=== PATIENT | male | born 1985 | race Caucasian/White ===

== ENCOUNTER 2020-07-01 09:00 | Outpatient (RCR) | payer OTHER, SELFPAY | END 2021-03-09 10:00 | disposition home or self-care (01) | LOC: HO.WCC 09:00 | PROVIDERS: PCP Internal Medicine; Visit Provider Physician Assistant Surgical | DX: I87.012 Postthrombotic syndrome with ulcer of left lower extremity (principal); L97.222 Non-pressure chronic ulcer of left calf with fat layer exposed; D68.2 Hereditary deficiency of other clotting factors; E66.01 Morbid (severe) obesity due to excess calories | CPT/HCPCS: 11042; 97597; 97598; 99212; 99213; 99214 ==

== ENCOUNTER 2020-07-23 12:48 | Outpatient (REF) | payer OTHER, SELFPAY ==
[2020-07-23 13:22] LABS: INTERNATIONAL NORM RATIO 1.5 (0.9-1.1); Prothrombin Time 17.7 SEC (10.8-13.0)
== END 2020-07-23 12:49 | disposition home or self-care (01) ==
LOC: HO.LAB 12:48
PROVIDERS: PCP Internal Medicine; Visit Provider Internal Medicine
DX: Z79.01 Long term (current) use of anticoagulants (principal)
CPT/HCPCS: 36415; 85610

== ENCOUNTER → 2021-07-19 11:05 | Outpatient (BNVA) | payer OTHER, SELFPAY | PROVIDERS: PCP Internal Medicine; Referring Provider Internal Medicine; Visit Provider Psychiatry & Neurology Neurology | DX: G47.19 Other hypersomnia (principal); R06.83 Snoring; E66.01 Morbid (severe) obesity due to excess calories; F19.11 Other psychoactive substance abuse, in remission; Z68.44 Body mass index [BMI] 60.0-69.9, adult | CPT/HCPCS: 99202 ==

== ENCOUNTER → 2021-11-03 14:16 | Outpatient (REF) | payer OTHER, SELFPAY | LOC: HO.SL 14:16 | PROVIDERS: Visit Provider Psychiatry & Neurology Neurology | DX: R06.83 Snoring (principal); G47.19 Other hypersomnia | CPT/HCPCS: 95806 ==

== ENCOUNTER 2024-03-27 10:04 | Outpatient (AMB) | payer OTHER, SELFPAY ==
--- NOTE | 2024-03-27 10:05 | MHC.PC.OV ---
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 Poker: Not Required per policy Accompanied by: Self / Same As Patient Allergies shellfish Allergy (Unknown, Uncoded 03/27/24 10:57) Unknown Medication List - Last Reconciled 03/27/24 by Chay Fermin MD methadone 50 mg PO DAILY warfarin 10 mg (2 x 5 mg) PO DAILY 30 days Tobacco use date assessed: 03/27/24 Dental Screening Dental Screen Date: 03/27/24 Did you have a dental visit in the last 12 months?: Yes Did you have a dental problem in the last 6 months where you did not have access to dental care?: No Was dental information given to patient?: Patient has dentist HPI pe HPI Details Patient comes in today for his annual physical examination - was last seen here in April 2022 Patient states that he currently has several issues that he would like to get checked out He would like to get checked for diabetes and possible thyroid problems as he feels that he has changed his diet around a lot lately and he is still not able to lose any significant amount of weight He would like to know if he can try some of the new GLP-1s out in the market today to help him lose weight States that he currently has an ulcer on the tip of his penis that has been present for over 2 months now and this is making him concerned that he may have diabetes States that he is no longer taking Topamax and that his headaches have not gotten any worse since he stopped taking it a few weeks ago States that his skin also appears to be breaking down in general lately, as he has had a significant increase in dandruff again from his scalp Notes that he is also developing several skin lesions/dry skin again over his legs He has also been experiencing increasing pain over his right knee lately and thinks that he may have arthritis in the knee He denies any headaches or dizziness lately Denies any chest pains, no increased shortness of breath No nausea/ vomiting, no abdominal pain No change in bowel habits noted He denies any acute urinary symptoms PFSH Medical History (Updated 03/28/24 @ 06:10 by Chay Fermin MD) Major depression, recurrent, chronic Essential hypertension Varicose veins of both legs with edema Lymphedema of both lower extremities Rib pain Impaired fasting glucose Bilateral lower extremity edema History of substance abuse Migraine Asthma Morbid obesity with BMI of 60.0-69.9, adult Witnessed apneic spells Monitoring for long-term anticoagulant use Factor V deficiency Anticoagulated by anticoagulation treatment Surgical History No significant past surgical history Family History Maternal Grandmother Breast cancer, Onset Age: 25 Colon cancer Paternal Grandmother Lung cancer Mother Fibromyalgia Other Mental health problem Substance abuse Social History Housing: Apartment Alcohol intake: never Patient Tobacco Use Status: Former Tobacco user Years Smoked: 20 +/- e-Cigarette/Vaping Use: Currently Using Substance Use Type: Crack/Cocaine and Heroin service: No Current occupational status: disabled Cognitive needs: Yes (requesting a cane. ) Hearing needs: No Vision needs: No Questionnaire PHQ-9 Over the last 2 weeks, how often have you been bothered by any of the following problems? 1. Little interest or pleasure in doing things: several days 2. Feeling down, depressed, or hopeless: several days 3. Trouble falling or staying asleep, or sleeping too much: nearly every day 4. Feeling tired or having little energy: nearly every day 5. Poor appetite or overeating: nearly every day 6. Feeling bad about yourself - or that you are a failure or have let yourself or your family down: more than half the days 7. Trouble concentrating on things, such as reading the newspaper or watching television: not at all 8. Moving or speaking so slowly that other people could have noticed. Or the opposite - being so fidgety or restless that you have been moving around a lot more than usual: nearly every day 9. Thoughts that you would be better off or of hurting yourself in some way: not at all Total score: 16 Depression Screening Interpretation: Positive Depression Screening Follow-up: Community Mental Health Worker F/U and Declines treatment Depression Screening Done: Yes [id number] - PHQ-9 Billing: Yes Source: Developed by Drs. Darwin Jones, Parminder Cruz and colleagues, with an educational harvey from [employer]. Thrive Questionnaire Date Thrive assessed: 03/27/24 I am a: Patient What is your living situation today?: I have a steady place to live Within the past 12 months, did the food you bought not last and you didn't have the money to get more?: Never true Within the past 12 months, did you worry whether your food would run out before you got money to buy more?: Never true Do you have trouble paying for medicines?: No Do you have trouble getting transportation to medical appointments?: No Do you have trouble paying your heating and electricity bill?: No Do you have trouble taking care of your child, family member or friend?: No Do you have trouble with day-to-day activities such as bathing, preparing meals, shopping, managing finances, etc.?: No Are you currently unemployed and looking for a job?: No Are you interested in more education?: No Please select the resources that you would like help with: None Currently or been in a relationship where the following occur: No concerns reported THRIVE Score: 0 AUDIT C Alcohol Use Questionnaire (AUDIT-C) 1. How often do you have a drink containing alcohol?: Never 3. How often do you have six or more drinks on one occasion?: Never Total Score: 0 Score Reviewed/Action Taken: Yes SAVANNA-7 AMB Questionnaire SAVANNA-7 Date SAVANNA - 7 assessed: 03/27/24 Feeling nervous, anxious, or on edge: 0 = Not at all Not being able to stop or control worryin = Not at all Worrying too much about different things: 0 = Not at all Trouble relaxin = Not at all Being so restless that it is hard to sit still: 0 = Not at all Becoming easily annoyed or irritable: 0 = Not at all Feeling afraid as if something awful might happen: 0 = Not at all Total SAVANNA-7 score (0-4 normal; 5-9 mild; 10-14 moderate; 15-21 severe): 0 Source: Developed by Drs. Darwin Jones, Parminder Cruz and colleagues, with an educational harvey from [employer]. Review of Systems Const Denies chills, Reports fatigue, Denies fever(s), Denies headache(s), Denies malaise and Denies weakness Eyes Denies blurry vision, Denies change in vision, Denies irritation and Denies itchy eyes ENT Denies dysphagia, Denies dizziness, Denies otalgia, Denies headache(s), Denies nasal congestion, Denies neck pain, Denies odynophagia and Denies sore throat Card Denies chest pain, Denies rapid heart rate, Denies irregular heart rhythm, Denies palpitations and Denies dyspnea Resp Denies chest congestion, Denies cough, Denies dyspnea and Denies wheezing GI Denies abdominal pain, Denies bloating, Denies constipation, Denies dysphagia, Denies heartburn, Denies diarrhea, Denies nausea, Denies odynophagia and Denies vomiting Details: (+) persistent sore on the tip of his penis Denies hematuria, Denies difficulty urinating, Denies dysuria, Denies urinary frequency and Denies urinary urgency Musc Denies back pain, Reports arthralgias (in the right knee - increasing lately), Reports joint swelling (on and off in the right knee), Denies muscle weakness and Denies neck pain Skin/Breast Details: increase in dandruff on his scalp Denies breast pain, Denies breast mass, Reports dry skin, Reports rash (increasing, over both lower legs) and Denies unusual bruising Neuro Denies dizziness, Denies headache(s), Denies paresthesias and Denies weakness Psych Denies anxiety and Reports depression Endo Reports fatigue and Denies palpitations Aller/Immun Denies itchy eyes and Denies wheezing Physical exam (Primary Care) Vital Signs: Last Vital Signs Pulse 86 03/27/24 10:06 BP 170/89 H 03/27/24 10:06 Pulse Ox 93 03/27/24 10:06 Oxygen Delivery Method Room Air 03/27/24 10:06 BMI result Body Mass Index 68.3 Tobacco/Smoking Status: Tobacco use Status Tobacco use date assessed 03/27/24 03/27/24 10:13 Patient Tobacco Use Status Former Tobacco user 03/27/24 10:13 e-Cigarette/Vaping Use Currently Using 03/27/24 10:13 PHQ-9: PHQ-9 Score PHQ-9: Total score 16 03/27/24 11:01 Depression Screening Interpretation: Positive Depression Screening Follow-up: Community Mental Health Worker F/U and Declines treatment Thrive Assessment: Date of Thrive Assessment Date Thrive assessed 03/27/24 03/27/24 10:13 Currently or been in a relationship where the following occur: No concerns reported Const General: no acute distress, alert and awake Orientation/consciousness: patient oriented x3 HENMT Other: (+) scattered seborrhea (dandruff) over the entire scalp Head: Yes normocephalic and Yes atraumatic Ears: external ears normal, TM's normal bilaterally and EAC's normal General nose exam: No nasal discharge present Face and sinus: Yes normal facial exam and Yes sinuses nontender Teeth and gingiva: dentition normal Throat: Yes posterior oropharynx normal and Yes tonsils normal (no TP congestion) Eyes Eyelids: Yes eyelids normal Conjunctivae: conjunctivae normal Pupils: Equal, round and reactive pupils present EOM: EOMs intact bilaterally Neck Neck: Yes no lymphadenopathy and Yes supple Thyroid: Thyroid normal Resp Auscultation: clear to auscultation bilaterally, no rales and no wheezes Cardio Rate: regular rate Rhythm: regular rhythm Heart sounds: no murmurs GI Other: unable to properly examine abdomen due to his globularly enlarged abdomen - he is morbidly obese Palpation (GI): Soft to palpation and nontender Auscultation: normal bowel sounds General: Yes no CVA tenderness Back/Spine/Pelvis Back: no CVA tenderness Thoracic/Lumbar Spine: No lumbar spinal tenderness Skin Other: (+) several large patchy areas of scaling rash on both lower extremities Neuro General: patient oriented x3, moves all extremities, no focal motor deficits and CN's II-XI intact bilaterally Cranial nerves: Yes Equal, round and reactive pupils present Cognition (Neuro): normal cognition Gait exam (Neuro): Normal gait present Extrem Other: (+) severe edema (3+) over both lower extremities - has chronic lymphedema, stasis dermatitis and significant varicosities noted over both lower legs Right lower extremity: knee Details: tenderness Location: of the pre-patellar area and of the infrapatellar area Assessment and Plan Assessment & Plan (1) Annual physical exam: Code(s): Z00.00 - Encounter for general adult medical examination without abnormal findings Plan: Check labs Have explained to patient that in the future, an annual physical should be done mostly for preventive management and not for addressing multiple active issues but as he has not been back in a couple of years, will go ahead and address all of his current issues as well today (2) Obstructive sleep apnea: Code(s): G47.33 - Obstructive sleep apnea (adult) (pediatric) Plan: Continue using his CPAP device regularly when sleeping at night He reports significant improvement of his symptoms - states that he has been more alert, with no daytime somnolence/drowsiness, feels less fatigued and has experienced a significant improvement of his headaches ever since he started CPAP therapy at night Follow up with Sleep Medicine as scheduled (3) Essential hypertension: Code(s): I10 - Essential (primary) hypertension Plan: Reinforced low sodium diet - goal is systolic BP of 120 mm or less He used to take Furosemide 20 mg Q AM and this was helping with his blood pressure but he stopped taking this a few weeks ago so he currently no longer has any Rx to help with his blood pressure Advised that if his blood pressure continues to stay high consistently, we will then need to start him on some other antihypertensives to help control his blood pressure Patient is reminded to continue monitoring his blood pressure regularly (4) Factor V deficiency: Comment: (+) Hx of DVT of the lower extremity; 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 Code(s): D68.2 - Hereditary deficiency of other clotting factors Plan: Continue lifelong anticoagulation with Coumadin He goes to the [facility] for PT/INR monitoring (5) Lymphedema of both lower extremities: Code(s): I89.0 - Lymphedema, not elsewhere classified Plan: He has chronic lymphedema, most likely due to his morbid obesity Continue Furosemide 20 mg Q AM PRN Patient reminded also to elevate his legs as often as he can throughout the day to help minimize his symptoms (6) Varicose veins of both legs with edema: Code(s): I83.893 - Varicose veins of bilateral lower extremities with other complications Plan: He has been seen by vascular surgery in the past and was reportedly advised that with his factor V deficiency, he would not be a good candidate for any ablative procedures for his varicose veins as he would be at risk for increased bleeding (7) Migraine: Code(s): G43.909 - Migraine, unspecified, not intractable, without status migrainosus Qualifiers: Intractability: not intractable Migraine type: with aura Status migrainosus presence: without status migrainosus Qualified Code(s): G43.109 - Migraine with aura, not intractable, without status migrainosus Plan: Stable/controlled Patient used to take Topiramate 50 mg 1.5 tablets (75 mg)?Q HS for headache prophylaxis but he stopped taking this a few months ago with no apparent increase in his headaches It is possible that his headaches have improved with his CPAP therapy and he does not appear to require any prophylactic treatment at this time Reinforced avoidance of migraine triggers Follow-up with neurology as scheduled or as needed (8) Asthma: Code(s): J45.909 - Unspecified asthma, uncomplicated Qualifiers: Asthma complication type: uncomplicated Asthma persistence: intermittent Asthma severity: mild Qualified Code(s): J45.20 - Mild intermittent asthma, uncomplicated Plan: Stable Continue Albuterol HFA 2 puffs 4 times a day as needed (9) Seborrheic dermatitis of scalp: Code(s): L21.9 - Seborrheic dermatitis, unspecified Plan: Per request, will refer to dermatology for further evaluation and management (10) Stasis dermatitis of both legs: Code(s): I87.2 - Venous insufficiency (chronic) (peripheral) Plan: Will refer him to dermatology for further evaluation and management of this issue as well (11) Penile ulcer: Code(s): N48.5 - Ulcer of penis Plan: Patient instructed to continue with daily wound care for now As requested, will send him for some labs and will include tests for his blood sugar and HgbA1c as well to assess him for diabetes (12) Knee pain, bilateral: Code(s): M25.561 - Pain in right knee; M25.562 - Pain in left knee Qualifiers: Chronicity: unspecified Qualified Code(s): M25.561 - Pain in right knee; M25.562 - Pain in left knee Plan: Will sent him for x-rays of both knees for further evaluation (13) History of substance abuse: Code(s): F19.11 - Other psychoactive substance abuse, in remission Plan: Continue Methadone 10 mg/5 ml 25 ml (50 mg) QD Follow up with the Methadone clinic as scheduled (14) Major depression, recurrent, chronic: Code(s): F33.9 - Major depressive disorder, recurrent, unspecified Plan: States that he is presently still following up with psychiatry regularly (15) Morbid obesity with BMI of 60.0-69.9, adult: Code(s): E66.01 - Morbid (severe) obesity due to excess calories; Z68.44 - Body mass index [BMI] 60.0-69.9, adult Plan: Reinforced diet; exercise and weight weight loss would be difficult at this time given the severity of his obesity Will refer him [place] [facility] [place] evaluation (16) Colon cancer screening: Code(s): Z12.11 - Encounter for screening for malignant neoplasm of colon Plan: Per request, will also refer him to GI for consideration for screening colonoscopy States that he has a maternal grandmother who was reportedly diagnosed with colon cancer in her early 40s and he would like to know that based on this information, if he should be checked for colon cancer much earlier than recommended Have advised that he does not have any first-degree relative diagnosed with early colon cancer ( his maternal grandmother does not count) but I will leave it up to Gastroenterology to determine his eligibility Plan Follow up in 3 months Orders: Orders Complete Blood Count Auto Diff 03/27/24 D64.9 - Anemia, unspecified, Z00.00 - Encounter for general adult medical examination without abnormal findings TSH reflex Free T4 03/27/24 E78.00 - Pure hypercholesterolemia, unspecified, Z00.00 - Encounter for general adult medical examination without abnormal findings Hemoglobin A1c 03/27/24 E11.9 - Type 2 diabetes mellitus without complications, Z00.00 - Encounter for general adult medical examination without abnormal findings Vitamin D 25-OH Total 03/27/24 E55.9 - Vitamin D deficiency, unspecified, Z00.00 - Encounter for general adult medical examination without abnormal findings XR knee RT 4V 03/27/24 M25.561 - Pain in right knee XR knee LT 4V 03/27/24 M25.562 - Pain in left knee MELIA Reflex Titer and Pattern 03/27/24 M25.50 - Pain in unspecified joint, R60.0 - Localized edema Rheumatoid Factor 03/27/24 M25.50 - Pain in unspecified joint, R60.0 - Localized edema Erythrocyte Sedimentation Rate 03/27/24 M25.50 - Pain in unspecified joint, M79.7 - Fibromyalgia, R60.0 - Localized edema Comprehensive [place]. Panel Fast 03/27/24 E78.00 - Pure hypercholesterolemia, unspecified, Z00.00 - Encounter for general adult medical examination without abnormal findings Lipid Panel 03/27/24 E78.00 - Pure hypercholesterolemia, unspecified, Z00.00 - Encounter for general adult medical examination without abnormal findings UA CC w/rflx Micro + Cult 03/27/24 R30.0 - Dysuria, Z00.00 - Encounter for general adult medical examination without abnormal findings C Reactive Protein 03/27/24 M25.50 - Pain in unspecified joint, R60.0 - Localized edema Referrals Medical Weight Management Referral E66.01 - Morbid (severe) obesity due to excess calories, Z68.44 - Body mass index [BMI] 60.0-69.9, adult Gastroenterology Referral Z12.11 - Encounter for screening for malignant neoplasm of colon Dermatology Referral L21.9 - Seborrheic dermatitis, unspecified, L30.9 - Dermatitis, unspecified, L40.9 - Psoriasis, unspecified Coding Level of Care Code Est Pt Prev Care [id number]([id number]) Diagnoses Annual physical exam Z00.00 Obstructive sleep apnea G47.33 Essential hypertension I10 Factor V deficiency D68.2 Lymphedema of both lower extremities I89.0 Varicose veins of both legs with edema I83.893 Migraine with aura and without status migrainosus, not intractable G43.109 Intractability: not intractable Migraine type: with aura Status migrainosus presence: without status migrainosus Mild intermittent asthma without complication J45.20 Asthma complication type: uncomplicated Asthma persistence: intermittent Asthma severity: mild Seborrheic dermatitis of scalp L21.9 Stasis dermatitis of both legs I87.2 Penile ulcer N48.5 Pain in both knees, unspecified chronicity M25.561; M25.562 Chronicity: unspecified History of substance abuse F19.11 Major depression, recurrent, chronic F33.9 Morbid obesity with BMI of 60.0-69.9, adult E66.01; Z68.44 Colon cancer screening Z12.11
[2024-03-27 10:06] VITALS: BP 170/89; PULSE 86; O2SAT 93; BMI 68.3
== END 2024-03-27 11:19 | disposition home or self-care (01) ==
PROVIDERS: PCP Internal Medicine; Visit Provider Internal Medicine
DX: Z00.00 Encounter for general adult medical examination without abnormal findings (principal); G47.33 Obstructive sleep apnea (adult) (pediatric); I10 Essential (primary) hypertension; I83.893 Varicose veins of bilateral lower extremities with other complications; I89.0 Lymphedema, not elsewhere classified; G43.109 Migraine with aura, not intractable, without status migrainosus; J45.20 Mild intermittent asthma, uncomplicated; L21.9 Seborrheic dermatitis, unspecified; I87.2 Venous insufficiency (chronic) (peripheral); N48.5 Ulcer of penis; M25.561 Pain in right knee; M25.562 Pain in left knee
CPT/HCPCS: 99395

== ENCOUNTER 2024-07-09 14:27 | Outpatient (AMB) | payer OTHER, SELFPAY ==
--- NOTE | 2024-07-09 14:25 | A.OFFPC_ITS ---
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 Required: No Accompanied by: Self / Same As Patient Allergies shellfish Allergy (Unknown, Uncoded 07/13/24 07:16) Unknown Medication List - Last Reconciled 07/13/24 by Chay Fermin MD cholecalciferol (vitamin D3) 50 mcg PO DAILY 90 days escitalopram oxalate 20 mg PO DAILY methadone 50 mg PO DAILY warfarin 10 mg (2 x 5 mg) PO DAILY 30 days Tobacco use date assessed: 07/09/24 Dental Screening Dental Screen Date: 03/27/24 Did you have a dental visit in the last 12 months?: No Did you have a dental problem in the last 6 months where you did not have access to dental care?: No Was dental information given to patient?: Patient has dentist HPI 3m f/u [phone] HPI Details Patient's follow up visit / consultation today is done over video conference (iPhone/iPad/[employer]) - this is a TELEHEALTH visit Patient's current medications have been reviewed and verified with patient and/or caregiver/proxy and have been updated accordingly in the medication list Patient states that he feels okay He denies any headaches or dizziness Denies any chest pains, no shortness of breath No nausea/vomiting, no abdominal pain No change in bowel habits noted States that he had his labs done at [facility] a couple of months ago - to discuss his results [facility] Medical History (Updated 07/13/24 @ 10:25 by Chay Fermin MD) Vitamin D deficiency Mixed hyperlipidemia Major depression, recurrent, chronic Essential hypertension Varicose veins of both legs with edema Lymphedema of both lower extremities Rib pain Impaired fasting glucose Bilateral lower extremity edema History of substance abuse Migraine Asthma Morbid obesity with BMI of 60.0-69.9, adult Witnessed apneic spells Monitoring for long-term anticoagulant use Factor V deficiency Anticoagulated by anticoagulation treatment Surgical History No significant past surgical history Family History Maternal Grandmother Breast cancer, Onset Age: 25 Colon cancer Paternal Grandmother Lung cancer Mother Fibromyalgia Other Mental health problem Substance abuse Social History Housing: Apartment Alcohol intake: never Patient Tobacco Use Status: Former Tobacco user Years Smoked: 20 +/- e-Cigarette/Vaping Use: Currently Using Substance Use Type: Crack/Cocaine and Heroin service: No Current occupational status: disabled Cognitive needs: Yes (requesting a cane. ) Hearing needs: No Vision needs: No Questionnaire PHQ-9 Over the last 2 weeks, how often have you been bothered by any of the following problems? 1. Little interest or pleasure in doing things: several days 2. Feeling down, depressed, or hopeless: several days 3. Trouble falling or staying asleep, or sleeping too much: nearly every day 4. Feeling tired or having little energy: nearly every day 5. Poor appetite or overeating: nearly every day 6. Feeling bad about yourself - or that you are a failure or have let yourself or your family down: more than half the days 7. Trouble concentrating on things, such as reading the newspaper or watching television: not at all 8. Moving or speaking so slowly that other people could have noticed. Or the opposite - being so fidgety or restless that you have been moving around a lot more than usual: nearly every day 9. Thoughts that you would be better off or of hurting yourself in some way: not at all Total score: 16 Depression Screening Interpretation: Positive Depression Screening Follow-up: Existing condition, Community Mental Health Worker F/U and Declines treatment Depression Screening Done: Yes 31708 - PHQ-9 Billing: Yes Source: Developed by Drs. Darwin Jones, Hayley Taylor, Parminder Ramirez and colleagues, with an educational harvey from [employer]. Thrive Questionnaire Date Thrive assessed: 07/09/24 I am a: Patient What is your living situation today?: I have a steady place to live Within the past 12 months, did the food you bought not last and you didn't have the money to get more?: Never true Within the past 12 months, did you worry whether your food would run out before you got money to buy more?: Never true Do you have trouble paying for medicines?: No Do you have trouble getting transportation to medical appointments?: No Do you have trouble paying your heating and electricity bill?: No Do you have trouble taking care of your child, family member or friend?: No Do you have trouble with day-to-day activities such as bathing, preparing meals, shopping, managing finances, etc.?: No Are you currently unemployed and looking for a job?: No Are you interested in more education?: No Please select the resources that you would like help with: None Currently or been in a relationship where the following occur: No concerns reported THRIVE Score: 0 AUDIT C Alcohol Use Questionnaire (AUDIT-C) 1. How often do you have a drink containing alcohol?: Never 3. How often do you have six or more drinks on one occasion?: Never Total Score: 0 Score Reviewed/Action Taken: Yes SAVANNA-7 AMB Questionnaire SAVANNA-7 Date SAVANNA - 7 assessed: 07/09/24 Feeling nervous, anxious, or on edge: 0 = Not at all Not being able to stop or control worryin = Not at all Worrying too much about different things: 0 = Not at all Trouble relaxin = Not at all Being so restless that it is hard to sit still: 0 = Not at all Becoming easily annoyed or irritable: 0 = Not at all Feeling afraid as if something awful might happen: 0 = Not at all Total SAVANNA-7 score (0-4 normal; 5-9 mild; 10-14 moderate; 15-21 severe): 0 Source: Developed by Drs. Darwin Jones, Hayley Taylor, Parminder Ramirez and colleagues, with an educational harvey from [employer]. Review of Systems Const Denies chills, Reports fatigue, Denies fever(s) and Denies headache(s) ENT Denies dysphagia, Denies dizziness, Denies otalgia, Denies headache(s), Denies neck pain, Denies odynophagia and Denies sore throat Card Denies chest pain, Denies irregular heart rhythm, Denies palpitations and Denies dyspnea Resp Denies chest congestion, Denies cough and Denies dyspnea GI Denies abdominal pain, Denies constipation, Denies dysphagia, Denies heartburn, Denies diarrhea, Denies nausea, Denies odynophagia and Denies vomiting Denies difficulty urinating, Denies dysuria and Denies urinary frequency Musc Denies back pain, Reports arthralgias (in the right knee - increasing lately) and Denies neck pain Skin/Breast Details: increase in dandruff on his scalp Reports rash (increasing, over both lower legs) Neuro Denies dizziness, Denies headache(s) and Denies paresthesias Psych Denies anxiety and Reports depression Endo Reports fatigue and Denies palpitations Physical exam (Primary Care) Vital Signs: Physical examination is not performed as visit / consultation today is done over videoconference - Telehealth visit All physical findings indicated here, if present, are as per patient's and / or caregivers / proxy's report and visual inspection over videoconference, if appropriate or applicable Tobacco/Smoking Status: Tobacco use Status Tobacco use date assessed 07/09/24 07/09/24 14:27 Patient Tobacco Use Status Former Tobacco user 07/09/24 14:27 e-Cigarette/Vaping Use Currently Using 07/09/24 14:27 PHQ-9: PHQ-9 Score PHQ-9: Total score 16 07/13/24 10:25 Depression Screening Interpretation: Positive Depression Screening Follow-up: Existing condition, Community Mental Health Worker F/U and Declines treatment Thrive Assessment: Date of Thrive Assessment Date Thrive assessed 07/09/24 07/09/24 14:27 Currently or been in a relationship where the following occur: No concerns reported Telehealth Telehealth Telehealth Platform: Telephone Location of provider rendering services: other Location of patient: address on file Patient Identification confirmed using: Name, : Yes Telehealth method: video (android) Patient verbally consented to treatment: Yes Patient verbally consented to billing insurance company: Yes Patient informed of any privacy concerns related to visit: Yes Minutes spent on Phone/Video with Pt.: 19 Coding Level of Care Code Tele Est Pt Level 4 (25945) Diagnoses Obstructive sleep apnea G47.33 Essential hypertension I10 Mixed hyperlipidemia E78.2 Factor V deficiency D68.2 Lymphedema of both lower extremities I89.0 Varicose veins of both legs with edema I83.893 Migraine with aura and without status migrainosus, not intractable G43.109 Intractability: not intractable Migraine type: with aura Status migrainosus presence: without status migrainosus Mild intermittent asthma without complication J45.20 Asthma complication type: uncomplicated Asthma persistence: intermittent Asthma severity: mild Vitamin D deficiency E55.9 Seborrheic dermatitis of scalp L21.9 Stasis dermatitis of both legs I87.2 Pain in both knees, unspecified chronicity M25.561; M25.562 Chronicity: unspecified History of substance abuse F19.11 Major depression, recurrent, chronic F33.9 Morbid obesity with BMI of 60.0-69.9, adult E66.01; Z68.44 Additional Codes PHQ-9 - 82915 - PHQ-9 Billing: Yes ([id number]) Assessment & Plan Assessment & Plan (1) Obstructive sleep apnea: Code(s): G47.33 - Obstructive sleep apnea (adult) (pediatric) Category: Medical Plan: Continue using his CPAP device regularly when sleeping at night He reports significant improvement of his symptoms - states that he has been more alert, with no daytime somnolence/drowsiness, feels less fatigued and has experienced a significant improvement of his headaches ever since he started CPAP therapy at night Follow up with Sleep Medicine as scheduled (2) Essential hypertension: Code(s): I10 - Essential (primary) hypertension Category: Social Hx Plan: Reinforced low sodium diet - goal is systolic BP of 120 mm or less He used to take Furosemide 20 mg Q AM and this was helping with his blood pressure but he stopped taking this a few weeks ago so he currently no longer has any Rx to help with his blood pressure Advised that if his blood pressure continues to stay high consistently, we may need to start him on some other antihypertensives to help control his blood pressure Patient is reminded to continue monitoring his blood pressure regularly (3) Mixed hyperlipidemia: Code(s): E78.2 - Mixed hyperlipidemia Category: Medical Plan: Results of his labs done at [facility] back in April 2024 reviewed and discussed with patient Advised patient that his serum TG was elevated at 171 mg/dl; his total cholesterol and LDL cholesterol were within normal range (176 mg/dl and 106 mg/dl respectively) Reinforced low cholesterol diet (4) Factor V deficiency: Comment: (+) Hx of DVT of the lower extremity; 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 Code(s): D68.2 - Hereditary deficiency of other clotting factors Category: Medical Plan: Continue lifelong anticoagulation with Coumadin He used to go [facility] for PT/INR monitoring but has not been back to see them in a couple of years now Patient states that he is looking into getting the home INR test kit to monitor his INR on his own (5) Lymphedema of both lower extremities: Code(s): I89.0 - Lymphedema, not elsewhere classified Category: Medical Plan: He has chronic lymphedema, most likely due to his morbid obesity Continue Furosemide 20 mg Q AM PRN Patient reminded also to elevate his legs as often as he can throughout the day to help minimize his symptoms (6) Varicose veins of both legs with edema: Code(s): I83.893 - Varicose veins of bilateral lower extremities with other complications Category: Medical Plan: He has been seen by vascular surgery in the past and was reportedly advised that with his factor V deficiency, he would not be a good candidate for any ablative procedures for his varicose veins as he would be at risk for increased bleeding (7) Migraine: Code(s): G43.909 - Migraine, unspecified, not intractable, without status migrainosus Category: Medical Qualifiers: Intractability: not intractable Migraine type: with aura Status migrainosus presence: without status migrainosus Qualified Code(s): G43.109 - Migraine with aura, not intractable, without status migrainosus Plan: Stable/controlled Patient used to take Topiramate 50 mg 1.5 tablets (75 mg)?Q HS for headache prophylaxis but he stopped taking this a few months ago with no apparent increase in his headaches It is possible that his headaches have improved with his CPAP therapy and he does not appear to require any prophylactic treatment at this time Reinforced avoidance of migraine triggers Follow-up with neurology as scheduled or as needed (8) Asthma: Code(s): J45.909 - Unspecified asthma, uncomplicated Category: Medical Qualifiers: Asthma complication type: uncomplicated Asthma persistence: intermittent Asthma severity: mild Qualified Code(s): J45.20 - Mild intermittent asthma, uncomplicated Plan: Stable Continue Albuterol HFA 2 puffs 4 times a day as needed (9) Vitamin D deficiency: Code(s): E55.9 - Vitamin D deficiency, unspecified Category: Medical Plan: Have advised patient that his Vitamin D level is very low (8 ng/ml) on his recent labs and he should start taking Vitamin D supplements Will start him on Vitamin D3 2000 units QD (10) Seborrheic dermatitis of scalp: Code(s): L21.9 - Seborrheic dermatitis, unspecified Category: Medical Plan: Follow up with dermatology as scheduled (11) Stasis dermatitis of both legs: Code(s): I87.2 - Venous insufficiency (chronic) (peripheral) Category: Medical Plan: Follow up with dermatology as scheduled (12) Knee pain, bilateral: Code(s): M25.561 - Pain in right knee; M25.562 - Pain in left knee Category: Medical Qualifiers: Chronicity: unspecified Qualified Code(s): M25.561 - Pain in right knee; M25.562 - Pain in left knee Plan: He likely has OA of his knees that are causing his increased knee pains He was sent for x-rays of both knees for further evaluation but he was not able to get these done yet (13) History of substance abuse: Code(s): F19.11 - Other psychoactive substance abuse, in remission Category: Medical Plan: Continue Methadone 10 mg/5 ml 25 ml (50 mg) QD Follow up with the Methadone clinic as scheduled (14) Major depression, recurrent, chronic: Code(s): F33.9 - Major depressive disorder, recurrent, unspecified Category: Medical Plan: Continue Escitalopram 20 mg QD Follow up with psychiatry as scheduled - he sees his therapist weekly and his psychiatrist every one to two months when needed (15) Morbid obesity with BMI of 60.0-69.9, adult: Code(s): E66.01 - Morbid (severe) obesity due to excess calories; Z68.44 - Body mass index [BMI] 60.0-69.9, adult Category: Medical Plan: Reinforced diet; exercise and weight weight loss would be difficult at this time given the severity of his obesity and his physical issues He was [place] [facility] [place] evaluation and management Plan Follow up in 3 months Medications: New cholecalciferol (vitamin D3) 50 mcg PO DAILY 90 days 90 caps 3RF E55.9 - Vitamin D deficiency, unspecified
== END 2024-07-09 15:22 | disposition home or self-care (01) ==
LOC: HO.HMCH 14:27
PROVIDERS: PCP Internal Medicine; Visit Provider Internal Medicine
DX: D68.2 Hereditary deficiency of other clotting factors (principal); F33.9 Major depressive disorder, recurrent, unspecified; E66.01 Morbid (severe) obesity due to excess calories; Z68.44 Body mass index [BMI] 60.0-69.9, adult; F19.11 Other psychoactive substance abuse, in remission; G47.33 Obstructive sleep apnea (adult) (pediatric); I10 Essential (primary) hypertension; E78.2 Mixed hyperlipidemia; I89.0 Lymphedema, not elsewhere classified; I83.893 Varicose veins of bilateral lower extremities with other complications; G43.109 Migraine with aura, not intractable, without status migrainosus; J45.20 Mild intermittent asthma, uncomplicated

== ENCOUNTER → 2024-07-09 14:27 | Outpatient (BNVA) | payer OTHER, SELFPAY | PROVIDERS: PCP Internal Medicine; Visit Provider Internal Medicine | DX: G47.33 Obstructive sleep apnea (adult) (pediatric) (principal); I10 Essential (primary) hypertension; E78.2 Mixed hyperlipidemia; D68.2 Hereditary deficiency of other clotting factors; I83.893 Varicose veins of bilateral lower extremities with other complications; G43.109 Migraine with aura, not intractable, without status migrainosus; J45.20 Mild intermittent asthma, uncomplicated; E55.9 Vitamin D deficiency, unspecified; L21.9 Seborrheic dermatitis, unspecified; M25.561 Pain in right knee; M25.562 Pain in left knee | CPT/HCPCS: 96127 ==

== ENCOUNTER 2024-08-01 08:13 | Outpatient (AMB) | payer OTHER, SELFPAY ==
--- NOTE | 2024-08-01 09:03 | MHC.OFFVISWM ---
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 ETOH: none PFSH Medical History (Updated 08/01/24 @ 09:08 by Gregor Farrar MD) Venous thromboembolism Sleep apnea treated with continuous positive airway pressure (CPAP) Morbid obesity Vitamin D deficiency Mixed hyperlipidemia Major depression, recurrent, chronic Essential hypertension Varicose veins of both legs with edema Lymphedema of both lower extremities Rib pain Impaired fasting glucose Bilateral lower extremity edema History of substance abuse Migraine Asthma Morbid obesity with BMI of 60.0-69.9, adult Witnessed apneic spells Monitoring for long-term anticoagulant use Factor V deficiency Anticoagulated by anticoagulation treatment Surgical History No significant past surgical history Family History (Updated 07/16/24 @ 10:51 by Yuridia Patterson CMA) Maternal Grandmother Breast cancer, Onset Age: 25 Colon cancer Paternal Grandmother Lung cancer Mother Fibromyalgia Autosomal recessive severe combined immunodeficiency disease Father Heart problem Sleep apnea Other Mental health problem Substance abuse Social History Housing: Apartment Alcohol intake: never Patient Tobacco Use Status: Former Tobacco user Years Smoked: 20 +/- e-Cigarette/Vaping Use: Currently Using Substance Use Type: Crack/Cocaine and Heroin service: No Current occupational status: disabled Cognitive needs: Yes (requesting a cane. ) Hearing needs: No Vision needs: No Telehealth Telehealth Telehealth Platform: Telephone Location of provider rendering services: practice address Location of patient: address on file Patient Identification confirmed using: Name, : Yes Telehealth method: voice only Patient verbally consented to treatment: Yes Patient verbally consented to billing insurance company: Yes Patient informed of any privacy concerns related to visit: Yes Minutes spent on Phone/Video with Pt.: 45 Assessment & Plan Assessment & Plan (1) Morbid obesity: Code(s): E66.01 - Morbid (severe) obesity due to excess calories Category: Medical Plan: 1.? Plan for lap sleeve gastrectomy. If diaphragmatic or ventral hernias are present at time of surgery, these will be repaired laparoscopically as well. Risks and complications include possible conversion to an open procedure, anastomotic leak, bleeding requiring transfusion, small bowel obstruction, , DVT and pulmonary embolism, cardiac, or pulmonary complications, as long-term complications such as anastomotic ulcer, insufficient weight loss and vitamin deficiencies. I emphasized the importance of close follow-up, adherence to instructions and good communication. 2. You will receive a link of our software sherron to generate an individualized nutritional and exercise plan specific for you. Please send me a screenshot of the plans you will generate Meal to include lean meat (beef, fish, pork, turkey, chicken), or indian yogurt, or egg whites, or beans with a salad with olive oil and fruits (berries, pears, apples, kiwi). Avoid salt, breads, potatoes, rice, pasta, desserts. ?3. If you choose shakes, each shake would be drunk slowly, like coffee in a period of 2 hours. ?4. If you choose bars, cut each bar in 4 pieces and eat each piece in 30min ?to make each bar last 2 hours. ?5. I emphasized the importance of measuring accurately the food portion and measure it when serving the food in plate ?6. The meal portions include a specific number of forks of meat and salad. You always eat the meat portion but you can replace up to half of salad/vegetables portion with rice, potatoes or pasta, or a fruit ?if you like. The less you do it the better weight loss will be. ?7. One full-size fork is what it can be scooped on the fork without falling aside and not what can be bit with the fork. Use regular forks like those you find in a typical restaurant. ?8.? Please buy the body composition scale we discussed and send me weight measurements as soon as possible and then once a week. Always include your diet and exercise plan. 9. The best choice would be to purchase a stationary bike with back support at home that can track calories. Let me know if you do so I can give you an exercise plan. ?10.?Goal is to lose at least 1.5-2lbs per week ?11. Goal to lose 10% of your weight before surgery, which is about 100lbs. Ultimate weight goal: 374lbs before surgery 12. Please follow the diet plan exactly without any change. If you don't like something about the plan or you feel hungry you need to communicate with me so I can help you revise the plan. You should not change the plan yourself. Orders: Orders Complete Blood Count Auto Diff Today D68.2 - Hereditary deficiency of other clotting factors, E66.01 - Morbid (severe) obesity due to excess calories, I10 - Essential (primary) hypertension, Z68.44 - Body mass index [BMI] 60.0-69.9, adult, Z79.01 - care home (current) use of anticoagulants, Z86.718 - Personal history of other venous thrombosis and embolism Comprehensive Met. Panel Today D68.2 - Hereditary deficiency of other clotting factors, E66.01 - Morbid (severe) obesity due to excess calories, I10 - Essential (primary) hypertension, Z68.44 - Body mass index [BMI] 60.0-69.9, adult, Z79.01 - long term acute care registered nurse (current) use of anticoagulants, Z86.718 - Personal history of other venous thrombosis and embolism Vitamin A Today D68.2 - Hereditary deficiency of other clotting factors, E66.01 - Morbid (severe) obesity due to excess calories, I10 - Essential (primary) hypertension, Z68.44 - Body mass index [BMI] 60.0-69.9, adult, Z79.01 - care home (current) use of anticoagulants, Z86.718 - Personal history of other venous thrombosis and embolism Ferritin Today D68.2 - Hereditary deficiency of other clotting factors, E66.01 - Morbid (severe) obesity due to excess calories, I10 - Essential (primary) hypertension, Z68.44 - Body mass index [BMI] 60.0-69.9, adult, Z79.01 - care home (current) use of anticoagulants, Z86.718 - Personal history of other venous thrombosis and embolism Vitamin D 25-OH Total Today D68.2 - Hereditary deficiency of other clotting factors, E66.01 - Morbid (severe) obesity due to excess calories, I10 - Essential (primary) hypertension, Z68.44 - Body mass index [BMI] 60.0-69.9, adult, Z79.01 - long term acute care registered nurse (current) use of anticoagulants, Z86.718 - Personal history of other venous thrombosis and embolism US abdomen comp w elastography Today D68.2 - Hereditary deficiency of other clotting factors, E66.01 - Morbid (severe) obesity due to excess calories, I10 - Essential (primary) hypertension, Z68.44 - Body mass index [BMI] 60.0-69.9, adult, Z79.01 - long term acute care registered nurse (current) use of anticoagulants, Z86.718 - Personal history of other venous thrombosis and embolism XR chest 2V Today D68.2 - Hereditary deficiency of other clotting factors, E66.01 - Morbid (severe) obesity due to excess calories, I10 - Essential (primary) hypertension, Z68.44 - Body mass index [BMI] 60.0-69.9, adult, Z79.01 - care home (current) use of anticoagulants, Z86.718 - Personal history of other venous thrombosis and embolism ECG 12 lead EKG Today D68.2 - Hereditary deficiency of other clotting factors, E66.01 - Morbid (severe) obesity due to excess calories, I10 - Essential (primary) hypertension, Z68.44 - Body mass index [BMI] 60.0-69.9, adult, Z79.01 - care home (current) use of anticoagulants, Z86.718 - Personal history of other venous thrombosis and embolism FL upper GI w air Today D68.2 - Hereditary deficiency of other clotting factors, E66.01 - Morbid (severe) obesity due to excess calories, I10 - Essential (primary) hypertension, Z68.44 - Body mass index [BMI] 60.0-69.9, adult, Z79.01 - care home (current) use of anticoagulants, Z86.718 - Personal history of other venous thrombosis and embolism Insulin Today D68.2 - Hereditary deficiency of other clotting factors, E66.01 - Morbid (severe) obesity due to excess calories, I10 - Essential (primary) hypertension, Z68.44 - Body mass index [BMI] 60.0-69.9, adult, Z79.01 - care home (current) use of anticoagulants, Z86.718 - Personal history of other venous thrombosis and embolism Hemoglobin A1c Today D68.2 - Hereditary deficiency of other clotting factors, E66.01 - Morbid (severe) obesity due to excess calories, I10 - Essential (primary) hypertension, Z68.44 - Body mass index [BMI] 60.0-69.9, adult, Z79.01 - care home (current) use of anticoagulants, Z86.718 - Personal history of other venous thrombosis and embolism H Pylori Breath Test Today D68.2 - Hereditary deficiency of other clotting factors, E66.01 - Morbid (severe) obesity due to excess calories, I10 - Essential (primary) hypertension, Z68.44 - Body mass index [BMI] 60.0-69.9, adult, Z79.01 - long term acute care registered nurse (current) use of anticoagulants, Z86.718 - Personal history of other venous thrombosis and embolism Lipid Panel Today D68.2 - Hereditary deficiency of other clotting factors, E66.01 - Morbid (severe) obesity due to excess calories, I10 - Essential (primary) hypertension, Z68.44 - Body mass index [BMI] 60.0-69.9, adult, Z79.01 - long term acute care registered nurse (current) use of anticoagulants, Z86.718 - Personal history of other venous thrombosis and embolism IRON PROFILE Today D68.2 - Hereditary deficiency of other clotting factors, E66.01 - Morbid (severe) obesity due to excess calories, I10 - Essential (primary) hypertension, Z68.44 - Body mass index [BMI] 60.0-69.9, adult, Z79.01 - care home (current) use of anticoagulants, Z86.718 - Personal history of other venous thrombosis and embolism Vitamin B12 and Folate Today D68.2 - Hereditary deficiency of other clotting factors, E66.01 - Morbid (severe) obesity due to excess calories, I10 - Essential (primary) hypertension, Z68.44 - Body mass index [BMI] 60.0-69.9, adult, Z79.01 - care home (current) use of anticoagulants, Z86.718 - Personal history of other venous thrombosis and embolism Zinc Today D68.2 - Hereditary deficiency of other clotting factors, E66.01 - Morbid (severe) obesity due to excess calories, I10 - Essential (primary) hypertension, Z68.44 - Body mass index [BMI] 60.0-69.9, adult, Z79.01 - long term acute care registered nurse (current) use of anticoagulants, Z86.718 - Personal history of other venous thrombosis and embolism C Reactive Protein Today D68.2 - Hereditary deficiency of other clotting factors, E66.01 - Morbid (severe) obesity due to excess calories, I10 - Essential (primary) hypertension, Z68.44 - Body mass index [BMI] 60.0-69.9, adult, Z79.01 - care home (current) use of anticoagulants, Z86.718 - Personal history of other venous thrombosis and embolism Vitamin B1 Today D68.2 - Hereditary deficiency of other clotting factors, E66.01 - Morbid (severe) obesity due to excess calories, I10 - Essential (primary) hypertension, Z68.44 - Body mass index [BMI] 60.0-69.9, adult, Z79.01 - long term acute care registered nurse (current) use of anticoagulants, Z86.718 - Personal history of other venous thrombosis and embolism TSH reflex Free T4 Today D68.2 - Hereditary deficiency of other clotting factors, E66.01 - Morbid (severe) obesity due to excess calories, I10 - Essential (primary) hypertension, Z68.44 - Body mass index [BMI] 60.0-69.9, adult, Z79.01 - long term acute care registered nurse (current) use of anticoagulants, Z86.718 - Personal history of other venous thrombosis and embolism Referrals Behavioral Health Referral D68.2 - Hereditary deficiency of other clotting factors, E66.01 - Morbid (severe) obesity due to excess calories, I10 - Essential (primary) hypertension, Z68.44 - Body mass index [BMI] 60.0-69.9, adult, Z79.01 - long term acute care registered nurse (current) use of anticoagulants, Z86.718 - Personal history of other venous thrombosis and embolism Nutrition/Dietitian Referral D68.2 - Hereditary deficiency of other clotting factors, E66.01 - Morbid (severe) obesity due to excess calories, I10 - Essential (primary) hypertension, Z68.44 - Body mass index [BMI] 60.0-69.9, adult, Z79.01 - long term acute care registered nurse (current) use of anticoagulants, Z86.718 - Personal history of other venous thrombosis and embolism
[2024-08-01 09:13] VITALS: BMI 66.1
== END 2024-08-01 09:44 | disposition home or self-care (01) ==
LOC: HO.HBS 08:13
PROVIDERS: PCP Internal Medicine; Visit Provider Surgery
DX: E66.01 Morbid (severe) obesity due to excess calories (principal)
CPT/HCPCS: 99204

== ENCOUNTER 2024-09-05 09:16 | Outpatient (REF) | payer OTHER, SELFPAY ==
--- NOTE | ~2024-09-05 | US_ITS ---
EXAMINATION: US COMPLETE ABDOMEN WITH LIVER ELASTOGRAPHY CLINICAL INFORMATION: Obesity secondary to excess calories. COMPARISON: None available. TECHNIQUE: Real-time imaging of the abdominal viscera. Noninvasive ultrasound liver fibrosis assessment is performed using Miguel ElastPQ point quantification shear wave elastography (pSWE) with a C5-2 MHz transducer. Multiple elastography samples are obtained. As per technologist note, Limited exam due to patient morbid obesity. Poor elastography sampling. Exam submitted for review 09/08/2024 1:15 PM AWARD CLERK. FINDINGS: PANCREAS: The visualized pancreatic head and body are normal in appearance. The remainder of the pancreas is obscured from visualization by the overlying bowel gas. ABDOMINAL AORTA: No aortic aneurysm is seen. INFERIOR VENA CAVA: Visualized portions are normal. LIVER: There is mild hepatomegaly. There is diffusely increased hepatic echogenicity suggestive of steatosis. Liver contour is smooth in appearance. No suspicious focal lesion. The right lobe measures 22.5 cm in length. The left lobe measures 12.1 cm in length. Portal flow is hepatopedal. Shear wave liver elastography median stiffness is 1.76 m/s (reference: normal median stiffness is 1.3 m/s or less). IQR/median stiffness to assess sampling precision is 0.37 (reference: good quality data set is IQR/median stiffness of 0.15 or less). GALLBLADDER: The gallbladder is physiologically distended without evidence of stones, sludge, polyps, or pericholecystic fluid. Borderline/minimal wall thickening at 3 mm. This is nonspecific. COMMON BILE DUCT: Normal in caliber measuring 0.4 cm in diameter. RIGHT KIDNEY: No hydronephrosis. No renal calculi or focal parenchymal lesions. The kidney measures 13.3 cm in maximum dimension. LEFT KIDNEY: No hydronephrosis. No renal calculi or focal parenchymal lesions. The kidney measures 13.2 cm in maximum dimension. SPLEEN: Enlarged. The spleen measures 16.8 cm in maximum dimension. FREE FLUID: None seen. US/US abdomen comp w elastography IMPRESSION: 1. Hepatomegaly with diffusely increased echogenicity suggesting steatosis. Cannot exclude underlying hepatocellular disease. No focal lesions seen. Smooth hepatic contour. 2. Liver elastography: Although measurements appear consistent with compensated advanced chronic liver disease, there is statistical variability of the sampling which decreases accuracy. This is likely due to the patient's habitus. 3. Splenomegaly. 4. Gallbladder within normal limits. REFERENCE: Society of Radiologists in Ultrasound Liver Stiffness Thresholds (2020): LIVER STIFFNESS THRESHOLDS: *Liver Stiffness equal or less than 1.3 m/s: High probability of being normal. *Liver Stiffness less than 1.7 m/s: In the absence of other known clinical signs, rules out compensated advanced chronic liver disease. *Liver Stiffness 1.7-2.1 m/s: Suggestive of compensated advanced chronic liver disease but need further test for confirmation. *Liver Stiffness over 2.1 m/s: Rules in compensated advanced chronic liver disease. *Liver Stiffness over 2.4 m/s: Suggestive of clinically significant portal hypertension. QUALITY OF DATA SET: *IQR/Median value equal or less than 0.15 implies a quality data set. *IQR/Median value over 0.15 implies a poor quality data set. SIGNIFICANT CHANGE FROM PRIOR EXAM: Significant change if liver stiffness measurement is 10% or greater from prior exam. OTHER CONSIDERATIONS: The stage of liver fibrosis may be overestimated in the setting of acute hepatitis, liver inflammation, elevated liver function tests, hepatic vascular congestion, obstructive cholestasis, non-fasting state, and infiltrative diseases such as amyloidosis and lymphoma. In some patients with NAFLD, the liver stiffness thresholds for compensated advanced chronic liver disease may be lower. In causes other than viral hepatitis and NAFLD, liver stiffness thresholds are not well established. Electronically signed by: Ashish Epps MD 09/08/2024 02:20 PM [facility] [place]
[2024-09-05 10:19] LABS: MANUAL DIFF FLAG NO
[2024-09-05 11:02] LABS: Basophils Percent Auto 0.5 % (0-2); Eosinophils Absolute Auto 0.1 X10*3/uL (0.0-0.4); Eosinophils Percent Auto 1.6 % (0-4); Hematocrit 42.1 % (42.0-52.0); Hemoglobin 14.2 g/dl (14.0-18.0); Imm Gran Abs Auto 0.01 X10*3/uL (0.00-0.03); Imm Gran Pct Auto 0.2 % (0.0-0.4); Lymphocytes Percent Auto 15.5 % (20-40); Mean Corpuscular HGB Conc 33.7 g/dl (31.0-36.0); Mean Corpuscular Hemoglobin 29.3 pg (27.0-33.0); Mean Corpuscular Volume 86.8 fL (80.0-98.0); Monocytes Absolute Auto 0.3 X10*3/uL (0.1-1.2); Monocytes Percent Auto 4.2 % (2-11); Platelet Count 203 X10*3/uL (160-400); Red Blood Count 4.85 X10*6/uL (4.60-5.80); Red Cell Distribution Width 13.8 % (11.0-16.0); White Blood Count 6.5 X10*3/uL (4.8-10.8)
[2024-09-05 11:40] LABS: Estimated Average Glucose 94 mg/dL; Hemoglobin A1C 112.4429 umol/L; Hemoglobin A1c % 4.9 % (<6.0)
[2024-09-05 12:09] LABS: Ferritin 152 ng/mL (20-250); TSH reflex Free T4 1.99 uIU/mL (0.32-4.0); Vitamin D 25-OH Total 21.1 ng/mL (>30)
[2024-09-05 12:12] LABS: Folate 7.4 ng/mL (> or = 4.0); Vitamin B12 893 pg/mL (200-900)
[2024-09-05 12:15] LABS: Alanine Aminotransferase 21 U/L (0-40); Albumin Level 4.1 g/dL (3.5-5.0); Alkaline Phosphatase 71 U/L (39-117); Anion Gap 10 (12-20); Aspartate Amino Transferase 27 U/L (5-37); Bilirubin Total 0.5 mg/dL (0.0-1.0); Blood Urea Nitrogen 14 mg/dL (9-16); C Reactive Protein 1.47 mg/dL (< or = 0.50); Calcium 9.3 mg/dL (8.4-10.2); Carbon Dioxide 30 mmol/L (22-29); Chloride 103 mmol/L (96-108); Cholesterol 167 mg/dL (<200); Estimated Glomerular Filt Rate > 60; Glucose Random 88 mg/dL (60-115); HDL Cholesterol 35 mg/dL (>40); Iron 67 mcg/dL (45-160); LDL Cholesterol Calculated 103 mg/dL (<100); Percent Iron Saturation 22 % (15-50); Potassium 4.1 mmol/L (3.3-5.1); Sodium 139 mmol/L (135-145); Total Iron Binding Capacity 300 mcg/dL (228-428); Triglycerides 145 mg/dL (<150); Unsaturated Iron Binding 233 ug/dL
[2024-09-05 12:48] LABS: Insulin 26 uU/mL (2-29)
[2024-09-08 22:23] LABS: Zinc 64 mcg/dL (60-130)
[2024-09-10 16:53] LABS: Vitamin A 47 mcg/dL (38-98)
[2024-09-11 15:12] LABS: Vitamin B1 10 nmol/L (8-30)
== END 2024-09-05 09:17 | disposition home or self-care (01) ==
LOC: HO.US 09:16
PROVIDERS: PCP Internal Medicine; Visit Provider Surgery
DX: E66.01 Morbid (severe) obesity due to excess calories (principal); Z68.44 Body mass index [BMI] 60.0-69.9, adult; Z86.718 Personal history of other venous thrombosis and embolism; D68.2 Hereditary deficiency of other clotting factors; Z79.01 Long term (current) use of anticoagulants; I10 Essential (primary) hypertension
CPT/HCPCS: 36415; 76700; 76981; 80053; 80061; 82306; 82607; 82728; 82746; 83036; 83525; 83540; 84425; 84443; 84590; 84630; 85025; 86140

== ENCOUNTER → 2024-09-05 09:21 | Outpatient (BNV) | payer OTHER, SELFPAY | PROVIDERS: PCP Internal Medicine; Visit Provider Radiology Diagnostic Radiology | DX: R16.0 Hepatomegaly, not elsewhere classified (principal) | CPT/HCPCS: 76700 ==

== ENCOUNTER 2025-03-30 10:15 | Outpatient (AMB) | payer OTHER, SELFPAY ==
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
[2025-03-30 10:19] VITALS: BP 136/84; PULSE 82; O2SAT 96; BMI 65.2
== END 2025-03-30 11:01 | disposition home or self-care (01) ==
LOC: HO.HMCH 10:16
PROVIDERS: PCP Internal Medicine; Visit Provider Internal Medicine
DX: Z00.00 Encounter for general adult medical examination without abnormal findings (principal); G47.33 Obstructive sleep apnea (adult) (pediatric); I10 Essential (primary) hypertension; E78.2 Mixed hyperlipidemia; I89.0 Lymphedema, not elsewhere classified; I83.893 Varicose veins of bilateral lower extremities with other complications; G43.109 Migraine with aura, not intractable, without status migrainosus; J45.20 Mild intermittent asthma, uncomplicated; E55.9 Vitamin D deficiency, unspecified; L21.9 Seborrheic dermatitis, unspecified; I87.2 Venous insufficiency (chronic) (peripheral); M25.561 Pain in right knee; M25.562 Pain in left knee; F33.9 Major depressive disorder, recurrent, unspecified; E66.01 Morbid (severe) obesity due to excess calories; Z68.44 Body mass index [BMI] 60.0-69.9, adult

== ENCOUNTER → 2025-03-30 10:15 | Outpatient (BNVA) | payer OTHER, SELFPAY | PROVIDERS: PCP Internal Medicine; Visit Provider Internal Medicine | DX: Z00.00 Encounter for general adult medical examination without abnormal findings (principal); G47.33 Obstructive sleep apnea (adult) (pediatric); I10 Essential (primary) hypertension; E78.2 Mixed hyperlipidemia; D68.2 Hereditary deficiency of other clotting factors; I89.0 Lymphedema, not elsewhere classified; I83.893 Varicose veins of bilateral lower extremities with other complications; G43.109 Migraine with aura, not intractable, without status migrainosus; J45.20 Mild intermittent asthma, uncomplicated; E55.9 Vitamin D deficiency, unspecified; L21.9 Seborrheic dermatitis, unspecified; I87.2 Venous insufficiency (chronic) (peripheral); M25.561 Pain in right knee; M25.562 Pain in left knee; F19.11 Other psychoactive substance abuse, in remission; F33.9 Major depressive disorder, recurrent, unspecified; E66.01 Morbid (severe) obesity due to excess calories; Z68.44 Body mass index [BMI] 60.0-69.9, adult; Z99.89 Dependence on other enabling machines and devices; Z13.31 Encounter for screening for depression; Z13.39 Encounter for screening examination for other mental health and behavioral disorders | CPT/HCPCS: 96127; 99395 ==